=== PATIENT | female | born 1995 | race Caucasian/White ===

== ENCOUNTER 2017-10-11 16:05 | Emergency (ER) | payer OTHER ==
[~2017-10-11] VITALS: Ht 157.5 cm; Wt 55.8 kg
[2017-10-11 16:19] VITALS: Ht 157.5 cm; Wt 55.8 kg
[2017-10-11 18:50] VITALS: BP 112/59
== END 2017-10-11 18:50 | disposition home or self-care (01) ==
LOC: ED 16:05
DX: O34.81 Maternal care for other abnormalities of pelvic organs, first trimester (principal); N83.202 Unspecified ovarian cyst, left side; Z3A.01 Less than 8 weeks gestation of pregnancy